=== PATIENT | female | born 1950 | race Caucasian/White ===

== ENCOUNTER 2020-03-02 22:42 | Inpatient (IN) ==
[2020-03-03] MEDS ORDERED: ONDANSETRON 4 MG/2 ML VIAL IV PRN (03:10)
[2020-03-03] MEDS ORDERED: ALBUTEROL 2.5 MG/3 ML NEB RESP TX PRN (03:10)
[2020-03-03] MEDS ORDERED: ENOXAPARIN 40 MG/0.4 ML SYRINGE SUBCUT SCH (03:30)
[2020-03-03 03:41] LABS: Allen Test Positive; Pt O2 Delivery Device Ventilator
[2020-03-03] MEDS ORDERED: GLUCAGON 1 MG VIAL IM PRN (03:41)
[2020-03-03] MEDS ORDERED: DEXTROSE 50% 25 GM/50 ML VIAL IV PRN (03:41)
[2020-03-03 03:42] LABS: ABG Base Excess -2.9 MMOL/L (-2.5-2.5); ABG HCO3 21.2 MMOL/L (20-26); ABG Oxygen Saturation 99.4 % (95-100); ABG PCO2 34.6 MM HG (35-48); ABG PH 7.405 (7.35-7.45); ABG PO2 473.4 MM HG (80-95); ABG TCO2 22.3 MMOL/L (23-27)
[2020-03-03] MEDS: ENOXAPARIN 40 MG/0.4 ML SYRINGE SUBCUT SCH ×2 (04:59→16:20)
[2020-03-03] MEDS: SODIUM CHLORIDE 0.9% 1,000 ML IV SCH ×3 (04:59→20:27)
[2020-03-03] MEDS: LEVOTHYROXINE 200 MCG TABLET PO SCH (05:43)
[2020-03-03] MEDS: INSULIN REGULAR 100 UNIT/ML SUBCUT SCH ×3 (06:01→17:52)
[2020-03-03] MEDS: ALBUTEROL/IPRATROPIUM 3 ML NEB RESP TX SCH ×3 (07:10→20:03)
[2020-03-03 07:50] LABS: Apearance,Urine CLOUDY (Clear); Bilirubin,Urine Negative (Negative); Blood, Urine Small mg/dL (Negative); Glucose,Urine (UA) Negative (Negative); Hyaline Casts,Urine 53 /LPF (0-3); Ketones,Urine Negative (Negative); Mucus,Urine Few /LPF (Occasional); Nitrite,Urine Negative (Negative); Protein,Urine 30 MG/DL; RBC,Urine 93 /HPF (0-4); Squamous Epithelial Cell,Urine Occasional /HPF (0-10); Urine Color Amber (Yellow); Urine Specific Gravity 1.025 (1.001-1.035); Urine Urobilinogen < 2.0 EU/DL (0.2-1.0); WBC,Urine 397 /HPF (0-6)
[2020-03-03] MEDS ORDERED: MIDAZOLAM 10 MG/2 ML VIAL ONE (10:51)
[2020-03-03] MEDS ORDERED: MIDAZOLAM 2 MG/2 ML VIAL IV ONE (10:53)
[2020-03-03 14:20] LABS: Basophils % 0.1 % (0.0-0.8); Eosinophils % 0.1 % (0.00-10.9); Hematocrit 31.8 VOL% (35.7-47.0); Hemoglobin 9.7 GM/DL (12.0-16.0); Immature Granulocytes % 0.5 %; Immature Granulocytes Absolute 0.08 #; Lymphocytes # 1.8 10*3/uL (1.4-4.0); Lymphocytes % 11.8 % (21.3-54.2); Mean Corpuscular HGB Conc 30.5 GM/DL (32-36); Mean Corpuscular Volume 98.1 FL (87-102); Mean Platelet Volume 10.1 FL (9.6-12.0); Monocytes % 5.8 % (1.7-12.7); Neutrophils % 81.7 % (38.7-73.9); Platelet Count 282 T/CUMM (130-400); Red Blood Count 3.24 MC/CUMM (3.8-5.5); Red Cell Distribution Width 15.9 % (9.3-17.3); White Blood Count 15.1 T/CUMM (4-12)
[2020-03-03] MEDS: FAMOTIDINE 20 MG TABLET PO SCH (14:35)
[2020-03-03] MEDS: ASPIRIN CHEW 81 MG TABLET PO SCH (14:35)
[2020-03-03 14:36] LABS: Calcium 8.9 MG/DL (8.5-10.1); Osmolality,Calculated 313.6 MOS/KG (273-304)
[2020-03-03] MEDS: levETIRAcetam LIQUID 100 MG/ML 30 ML/BOTTLE PO SCH ×2 (14:37→20:30)
[2020-03-03 14:44] LABS: Troponin I 22.4 NG/ML (0.00-0.045)
[2020-03-03 14:56] LABS: Band Neutrophils 16 % (0-10); Lymphocytes 7 % (20-55); Platelet Estimate Normal; Polychromasia Slight; Segmented Neutrophils 74 % (50-85); Total Cells Counted 100
[2020-03-03] MEDS ORDERED: DIGOXIN 0.5 MG/2 ML AMP IV ONE ×2 (14:56→16:00)
[2020-03-03 14:57] LABS: Burr Cells Slight; Poikilocytosis Slight
[2020-03-03] MEDS ORDERED: POTASSIUM CHLORIDE RIDER 10 MEQ in PREMIX 1 EACH IV PRN (17:41)
[2020-03-03] MEDS: POTASSIUM CHLORIDE RIDER 20 MEQ in PREMIX 1 EACH IV PRN ×2 (18:05→20:28)
[2020-03-03] MEDS ORDERED: SODIUM CHLORIDE 0.9% 500 ML IV ONE (19:50)
[2020-03-03] MEDS: LATANOPROST 0.005% OPH SOLN 2.5 ML BOTTLE BOTH EYES SCH (20:29)
[2020-03-04] MEDS: ALBUTEROL/IPRATROPIUM 3 ML NEB RESP TX SCH ×4 (00:29→19:24)
[2020-03-04] MEDS: INSULIN REGULAR 100 UNIT/ML SUBCUT SCH ×4 (01:17→17:34)
[2020-03-04] MEDS ORDERED: SODIUM CHLORIDE 0.9% 500 ML IV ONE (01:30)
[2020-03-04] MEDS: SODIUM CHLORIDE 0.9% 1,000 ML IV SCH (02:16)
[2020-03-04] MEDS: ENOXAPARIN 40 MG/0.4 ML SYRINGE SUBCUT SCH ×2 (03:34→16:18)
[2020-03-04 03:52] LABS: ABG Base Excess -6.5 MMOL/L (-2.5-2.5); ABG HCO3 17.4 MMOL/L (20-26); ABG Oxygen Saturation 98.6 % (95-100); ABG PCO2 28.8 MM HG (35-48); ABG PO2 162.3 MM HG (80-95); ABG TCO2 18.3 MMOL/L (23-27); Allen Test Positive; Pt O2 Delivery Device Ventilator
[2020-03-04 05:57] LABS: Basophils % 0.2 % (0.0-0.8); Hematocrit 28.3 VOL% (35.7-47.0); Hemoglobin 8.8 GM/DL (12.0-16.0); Immature Granulocytes % 1.3 %; Immature Granulocytes Absolute 0.16 #; Lymphocytes # 1.1 10*3/uL (1.4-4.0); Lymphocytes % 8.8 % (21.3-54.2); Mean Corpuscular HGB Conc 31.1 GM/DL (32-36); Mean Corpuscular Volume 97.9 FL (87-102); Mean Platelet Volume 10.8 FL (9.6-12.0); Monocytes % 5.4 % (1.7-12.7); NRBC # 0.03 10*3/uL; Neutrophils % 84.3 % (38.7-73.9); Platelet Count 247 T/CUMM (130-400); Red Blood Count 2.89 MC/CUMM (3.8-5.5); Red Cell Distribution Width 15.9 % (9.3-17.3); White Blood Count 12.8 T/CUMM (4-12)
[2020-03-04 06:17] LABS: Calcium 8.5 MG/DL (8.5-10.1); Osmolality,Calculated 316.4 MOS/KG (273-304)
[2020-03-04 06:23] LABS: Prealbumin 3.1 MG/DL (20-40)
[2020-03-04] MEDS: LEVOTHYROXINE 200 MCG TABLET PO SCH (06:25)
[2020-03-04 06:33] LABS: Band Neutrophils 5 % (0-10); Lymphocytes 11 % (20-55); Segmented Neutrophils 77 % (50-85); Total Cells Counted 100
[2020-03-04 06:34] LABS: Anisocytosis 1+
[2020-03-04 06:35] LABS: Platelet Estimate Normal
[2020-03-04] MEDS: DEXTROSE 5% NACL 0.45% 1,000 ML IV SCH ×2 (09:00→22:32)
[2020-03-04] MEDS: LEVOFLOXACIN INJ 500 MG in PREMIX 1 EACH IV SCH (09:01)
[2020-03-04] MEDS: ASPIRIN CHEW 81 MG TABLET PO SCH (09:02)
[2020-03-04] MEDS: FAMOTIDINE 20 MG TABLET PO SCH (09:02)
[2020-03-04] MEDS: cefTRIAXone 1,000 MG in SYRINGE 1 EACH IV SCH (09:02)
[2020-03-04] MEDS: levETIRAcetam LIQUID 100 MG/ML 30 ML/BOTTLE PO SCH ×2 (09:03→21:29)
[2020-03-04] MEDS: LATANOPROST 0.005% OPH SOLN 2.5 ML BOTTLE BOTH EYES SCH (20:50)
[2020-03-05] MEDS: ALBUTEROL/IPRATROPIUM 3 ML NEB RESP TX SCH ×4 (00:07→19:07)
[2020-03-05] MEDS: INSULIN REGULAR 100 UNIT/ML SUBCUT SCH ×4 (00:15→18:08)
[2020-03-05 03:21] LABS: ABG Base Excess -3.3 MMOL/L (-2.5-2.5); ABG HCO3 21.7 MMOL/L (20-26); ABG Oxygen Saturation 98.8 % (95-100); ABG PCO2 29.7 MM HG (35-48); ABG TCO2 18.8 MMOL/L (23-27); Allen Test Positive; Pt O2 Delivery Device Ventilator
[2020-03-05] MEDS: ENOXAPARIN 40 MG/0.4 ML SYRINGE SUBCUT SCH ×2 (04:29→16:02)
[2020-03-05 04:40] LABS: Basophils % 0.3 % (0.0-0.8); Eosinophils % 0.3 % (0.00-10.9); Hematocrit 24.1 VOL% (35.7-47.0); Hemoglobin 7.5 GM/DL (12.0-16.0); Immature Granulocytes % 2.3 %; Immature Granulocytes Absolute 0.26 #; Lymphocytes # 1.2 10*3/uL (1.4-4.0); Lymphocytes % 10.8 % (21.3-54.2); Mean Corpuscular HGB Conc 31.1 GM/DL (32-36); Mean Corpuscular Volume 97.6 FL (87-102); Mean Platelet Volume 10.8 FL (9.6-12.0); Monocytes % 5.5 % (1.7-12.7); NRBC # 0.04 10*3/uL; Neutrophils % 80.8 % (38.7-73.9); Platelet Count 189 T/CUMM (130-400); Red Blood Count 2.47 MC/CUMM (3.8-5.5); Red Cell Distribution Width 16.2 % (9.3-17.3); White Blood Count 11.3 T/CUMM (4-12)
[2020-03-05 04:54] LABS: Calcium 8.4 MG/DL (8.5-10.1); Osmolality,Calculated 299.4 MOS/KG (273-304)
[2020-03-05] MEDS: POTASSIUM CHLORIDE RIDER 20 MEQ in PREMIX 1 EACH IV PRN (05:45)
[2020-03-05] MEDS: LEVOTHYROXINE 200 MCG TABLET PO SCH (05:45)
[2020-03-05 07:24] LABS: Band Neutrophils 2 % (0-10); Lymphocytes 7 % (20-55); Segmented Neutrophils 86 % (50-85); Total Cells Counted 100
[2020-03-05 07:26] LABS: Hypochromasia 1+
[2020-03-05 07:27] LABS: Anisocytosis 1+; Platelet Estimate Adequate
[2020-03-05] MEDS: ASPIRIN CHEW 81 MG TABLET PO SCH (08:02)
[2020-03-05] MEDS: LEVOFLOXACIN INJ 500 MG in PREMIX 1 EACH IV SCH (08:02)
[2020-03-05] MEDS: FAMOTIDINE 20 MG TABLET PO SCH (08:02)
[2020-03-05] MEDS: levETIRAcetam LIQUID 100 MG/ML 30 ML/BOTTLE PO SCH ×2 (08:02→20:57)
[2020-03-05] MEDS: cefTRIAXone 1,000 MG in SYRINGE 1 EACH IV SCH (08:03)
[2020-03-05] MEDS ORDERED: SODIUM CHLORIDE 0.9% 1,000 ML IV PRN (09:54)
[2020-03-05] MEDS: DEXTROSE 5% NACL 0.45% 1,000 ML IV SCH (12:34)
[2020-03-05 13:31] LABS: Pt O2 Delivery Device BIPAP
[2020-03-05 13:33] LABS: ABG Base Excess -1.7 MMOL/L (-2.5-2.5); ABG HCO3 22.9 MMOL/L (20-26); ABG Oxygen Saturation 95.5 % (95-100); ABG PCO2 29.1 MM HG (35-48); ABG PH 7.469 (7.35-7.45); ABG PO2 71.9 MM HG (80-95); ABG TCO2 19.2 MMOL/L (23-27)
[2020-03-05] MEDS ORDERED: LORazepam 2 MG/1 ML VIAL ONE (16:46)
[2020-03-05] MEDS ORDERED: LORazepam 2 MG/1 ML VIAL IV ONE (16:51)
[2020-03-05 17:03] VITALS: BP 120/75
[2020-03-05] MEDS ORDERED: VECURONIUM 10 MG VIAL IV ONE ×2 (17:45)
[2020-03-05] MEDS ORDERED: ETOMIDATE 20 MG/10 ML VIAL IV ONE ×2 (17:45)
[2020-03-05 18:37] LABS: ABG Base Excess -4.9 MMOL/L (-2.5-2.5); ABG HCO3 20.4 MMOL/L (20-26); ABG Oxygen Saturation 99.3 % (95-100); ABG PCO2 44.6 MM HG (35-48); ABG PH 7.296 (7.35-7.45); ABG TCO2 19.1 MMOL/L (23-27)
[2020-03-05] MEDS: LATANOPROST 0.005% OPH SOLN 2.5 ML BOTTLE BOTH EYES SCH (20:57)
[2020-03-05] MEDS: DEXMEDETOMIDINE 200 MCG in SODIUM CHLORIDE 0.9% 48 ML IV PRN (23:00)
[2020-03-06] MEDS: ALBUTEROL/IPRATROPIUM 3 ML NEB RESP TX SCH ×4 (01:46→19:04)
[2020-03-06] MEDS: INSULIN REGULAR 100 UNIT/ML SUBCUT SCH ×4 (01:46→18:08)
[2020-03-06 04:17] LABS: Allen Test Positive; Pt O2 Delivery Device Ventilator
[2020-03-06 04:20] LABS: ABG Base Excess -2.8 MMOL/L (-2.5-2.5); ABG HCO3 19.7 MMOL/L (20-26); ABG PCO2 27.8 MM HG (35-48); ABG PH 7.468 (7.35-7.45); ABG PO2 185.1 MM HG (80-95); ABG TCO2 20.5 MMOL/L (23-27)
[2020-03-06] MEDS: ENOXAPARIN 40 MG/0.4 ML SYRINGE SUBCUT SCH ×2 (05:15→15:46)
[2020-03-06] MEDS ORDERED: SODIUM CHLORIDE 0.9% 500 ML IV ONE (05:35)
[2020-03-06] MEDS ORDERED: DOPamine 800 MG/250 ML PREMIX IV PRN (06:02)
[2020-03-06 06:03] LABS: Basophils # 0.1 10*3/uL (0.0-0.2); Basophils % 0.5 % (0.0-0.8); Eosinophils % 0.1 % (0.00-10.9); Hematocrit 33.2 VOL% (35.7-47.0); Hemoglobin 10.8 GM/DL (12.0-16.0); Immature Granulocytes % 3.4 %; Immature Granulocytes Absolute 0.42 #; Lymphocytes % 8.2 % (21.3-54.2); Mean Corpuscular HGB Conc 32.5 GM/DL (32-36); Mean Platelet Volume 11.2 FL (9.6-12.0); Monocytes % 4.7 % (1.7-12.7); NRBC # 0.04 10*3/uL; Neutrophils % 83.1 % (38.7-73.9); Platelet Count 159 T/CUMM (130-400); Red Blood Count 3.65 MC/CUMM (3.8-5.5); Red Cell Distribution Width 16.2 % (9.3-17.3); White Blood Count 12.3 T/CUMM (4-12)
[2020-03-06 06:25] LABS: Calcium 8.2 MG/DL (8.5-10.1); Osmolality,Calculated 285.1 MOS/KG (273-304)
[2020-03-06 06:34] LABS: Osmolality,Calculated 285.1 MOS/KG (273-304)
[2020-03-06] MEDS: LEVOTHYROXINE 200 MCG TABLET PO SCH (06:41)
[2020-03-06 06:51] LABS: Band Neutrophils 5 % (0-10); Lymphocytes 8 % (20-55); Promyelocytes 2 %; Segmented Neutrophils 83 % (50-85); Total Cells Counted 100
[2020-03-06 06:52] LABS: Anisocytosis 1+; Hypochromasia 1+; Microcytosis 1+
[2020-03-06 06:53] LABS: Platelet Estimate Adequate
[2020-03-06] MEDS: FAMOTIDINE 20 MG TABLET PO SCH (08:22)
[2020-03-06] MEDS: ASPIRIN CHEW 81 MG TABLET PO SCH (08:22)
[2020-03-06] MEDS: cefTRIAXone 1,000 MG in SYRINGE 1 EACH IV SCH (08:22)
[2020-03-06] MEDS: levETIRAcetam LIQUID 100 MG/ML 30 ML/BOTTLE PO SCH ×2 (08:23→21:02)
[2020-03-06] MEDS: DEXTROSE 5% NACL 0.45% 1,000 ML IV SCH (08:41)
[2020-03-06] MEDS: LEVOFLOXACIN INJ 500 MG in PREMIX 1 EACH IV SCH (08:41)
[2020-03-06] MEDS ORDERED: SODIUM CHLORIDE 0.9% 250 ML IV ONE (09:24)
[2020-03-06] MEDS: MAGNESIUM SULF RIDER 2 GM in PREMIX 1 EACH IV PRN (09:40)
[2020-03-06] MEDS: ACETAMINOPHEN 325 MG TABLET PO PRN (12:28)
[2020-03-06] MEDS: DEXMEDETOMIDINE 200 MCG in SODIUM CHLORIDE 0.9% 48 ML IV PRN ×2 (12:50→18:31)
[2020-03-06] MEDS: LORazepam 2 MG/1 ML VIAL IV PRN (15:46)
[2020-03-06] MEDS: LATANOPROST 0.005% OPH SOLN 2.5 ML BOTTLE BOTH EYES SCH (22:37)
[2020-03-07] MEDS: INSULIN REGULAR 100 UNIT/ML SUBCUT SCH ×4 (00:32→18:35)
[2020-03-07] MEDS: ALBUTEROL/IPRATROPIUM 3 ML NEB RESP TX SCH ×4 (01:20→19:20)
[2020-03-07] MEDS: DEXMEDETOMIDINE 200 MCG in SODIUM CHLORIDE 0.9% 48 ML IV PRN ×2 (01:36→09:03)
[2020-03-07] MEDS: ENOXAPARIN 40 MG/0.4 ML SYRINGE SUBCUT SCH ×2 (04:26→17:20)
[2020-03-07 04:47] LABS: Allen Test Positive; Pt O2 Delivery Device Ventilator
[2020-03-07 04:47] LABS: Basophils % 0.4 % (0.0-0.8); Eosinophils # 0.1 10*3/uL (0.0-0.87); Eosinophils % 1.4 % (0.00-10.9); Hemoglobin 11.5 GM/DL (12.0-16.0); Immature Granulocytes % 3.3 %; Immature Granulocytes Absolute 0.34 #; Lymphocytes # 0.7 10*3/uL (1.4-4.0); Lymphocytes % 6.4 % (21.3-54.2); Mean Corpuscular HGB Conc 31.9 GM/DL (32-36); Mean Corpuscular Volume 92.5 FL (87-102); Mean Platelet Volume 10.9 FL (9.6-12.0); Monocytes % 4.1 % (1.7-12.7); Neutrophils % 84.4 % (38.7-73.9); Platelet Count 162 T/CUMM (130-400); Red Blood Count 3.89 MC/CUMM (3.8-5.5); Red Cell Distribution Width 16.2 % (9.3-17.3); White Blood Count 10.2 T/CUMM (4-12)
[2020-03-07 04:49] LABS: ABG Base Excess 0.1 MMOL/L (-2.5-2.5); ABG HCO3 24.6 MMOL/L (20-26); ABG Oxygen Saturation 99.4 % (95-100); ABG PCO2 34.3 MM HG (35-48); ABG PH 7.446 (7.35-7.45); ABG TCO2 20.9 MMOL/L (23-27)
[2020-03-07 05:02] LABS: Calcium 7.8 MG/DL (8.5-10.1); Osmolality,Calculated 283.1 MOS/KG (273-304)
[2020-03-07 05:43] LABS: Band Neutrophils 4 % (0-10); Eosinophils 2 % (0-10); Hypochromasia 1+; Lymphocytes 3 % (20-55); Microcytosis 1+; Polychromasia Slight; Segmented Neutrophils 89 % (50-85); Total Cells Counted 100
[2020-03-07 05:47] LABS: HDL Cholesterol 20 MG/DL (40-60); Triglycerides 52 MG/DL (2-150); VLDL CHOLESTEROL 10.4 MG/DL
[2020-03-07] MEDS: DEXTROSE 5% NACL 0.45% 1,000 ML IV SCH (05:56)
[2020-03-07] MEDS: LEVOTHYROXINE 200 MCG TABLET PO SCH (05:56)
[2020-03-07] MEDS: FAMOTIDINE 20 MG TABLET PO SCH (09:05)
[2020-03-07] MEDS: ASPIRIN CHEW 81 MG TABLET PO SCH (09:05)
[2020-03-07] MEDS: LEVOFLOXACIN INJ 500 MG in PREMIX 1 EACH IV SCH (09:05)
[2020-03-07] MEDS: POTASSIUM CHLORIDE 20 MEQ/15 ML UDCUP PER TUBE PRN (09:05)
[2020-03-07] MEDS: levETIRAcetam LIQUID 100 MG/ML 30 ML/BOTTLE PO SCH (09:05)
[2020-03-07] MEDS: cefTRIAXone 1,000 MG in SYRINGE 1 EACH IV SCH (09:05)
[2020-03-07] MEDS: NOREPINEPHRINE 8 MG in SODIUM CHLORIDE 0.9% 242 ML IV PRN (10:47)
[2020-03-07] MEDS: LORazepam 2 MG/1 ML VIAL IV PRN ×2 (12:15→22:40)
[2020-03-07] MEDS: ACETAMINOPHEN 325 MG TABLET PO PRN (13:20)
[2020-03-07] MEDS: DEXMEDETOMIDINE 400 MCG in SODIUM CHLORIDE 0.9% 96 ML IV PRN ×2 (14:40→23:00)
[2020-03-07] MEDS: LATANOPROST 0.005% OPH SOLN 2.5 ML BOTTLE BOTH EYES SCH (21:46)
[2020-03-08] MEDS: levETIRAcetam LIQUID 100 MG/ML 30 ML/BOTTLE PO SCH ×3 (00:23→21:07)
[2020-03-08] MEDS: INSULIN REGULAR 100 UNIT/ML SUBCUT SCH ×4 (01:01→17:40)
[2020-03-08] MEDS: ALBUTEROL/IPRATROPIUM 3 ML NEB RESP TX SCH ×4 (02:00→20:00)
[2020-03-08 04:19] LABS: Basophils % 0.2 % (0.0-0.8); Eosinophils # 0.1 10*3/uL (0.0-0.87); Immature Granulocytes % 1.9 %; Immature Granulocytes Absolute 0.23 #; Lymphocytes % 7.9 % (21.3-54.2); Mean Corpuscular HGB Conc 32.4 GM/DL (32-36); Mean Corpuscular Volume 92.6 FL (87-102); Mean Platelet Volume 11.2 FL (9.6-12.0); Monocytes % 4.9 % (1.7-12.7); Neutrophils % 84.1 % (38.7-73.9); Platelet Count 167 T/CUMM (130-400); Red Blood Count 3.67 MC/CUMM (3.8-5.5); Red Cell Distribution Width 16.1 % (9.3-17.3); White Blood Count 12.1 T/CUMM (4-12)
[2020-03-08] MEDS: DEXTROSE 5% NACL 0.45% 1,000 ML IV SCH (04:30)
[2020-03-08] MEDS: ENOXAPARIN 40 MG/0.4 ML SYRINGE SUBCUT SCH ×2 (04:30→15:01)
[2020-03-08 04:31] LABS: ABG Base Excess 0.6 MMOL/L (-2.5-2.5); ABG HCO3 23.1 MMOL/L (20-26); ABG Oxygen Saturation 99.1 % (95-100); ABG PCO2 30.2 MM HG (35-48); ABG PH 7.502 (7.35-7.45); ABG PO2 207.1 MM HG (80-95); ABG TCO2 24.1 MMOL/L (23-27); Allen Test Positive; Pt O2 Delivery Device Ventilator
[2020-03-08 04:36] LABS: Calcium 7.9 MG/DL (8.5-10.1); Osmolality,Calculated 280.5 MOS/KG (273-304)
[2020-03-08 04:49] LABS: Band Neutrophils 1 % (0-10); Hypochromasia 1+; Lymphocytes 5 % (20-55); Platelet Estimate Adequate; Segmented Neutrophils 91 % (50-85); Total Cells Counted 100
[2020-03-08 04:50] LABS: Microcytosis 1+
[2020-03-08] MEDS: LEVOTHYROXINE 200 MCG TABLET PO SCH (06:18)
[2020-03-08] MEDS: MAGNESIUM SULF RIDER 2 GM in PREMIX 1 EACH IV PRN (06:25)
[2020-03-08] MEDS: ACETAMINOPHEN 325 MG TABLET PO PRN (08:40)
[2020-03-08] MEDS: ASPIRIN CHEW 81 MG TABLET PO SCH (08:41)
[2020-03-08] MEDS: FAMOTIDINE 20 MG TABLET PO SCH (08:41)
[2020-03-08] MEDS: LEVOFLOXACIN INJ 500 MG in PREMIX 1 EACH IV SCH (08:45)
[2020-03-08] MEDS: cefTRIAXone 1,000 MG in SYRINGE 1 EACH IV SCH (08:50)
[2020-03-08] MEDS ORDERED: methylPREDNISolone SOD SUC 125 MG/2 ML VIAL IV ONE (09:00)
[2020-03-08] MEDS: guaiFENesin 200 MG/10 ML UDCUP PER TUBE SCH ×4 (09:23→21:07)
[2020-03-08] MEDS: PIPERACILLIN/TAZOBACTAM 3,375 MG in SODIUM CHLORIDE 0.9% 100 ML IV SCH ×2 (10:28→17:41)
[2020-03-08] MEDS: DEXMEDETOMIDINE 400 MCG in SODIUM CHLORIDE 0.9% 96 ML IV PRN (11:20)
[2020-03-08] MEDS: NOREPINEPHRINE 8 MG in SODIUM CHLORIDE 0.9% 242 ML IV PRN (11:58)
[2020-03-08] MEDS ORDERED: FUROSEMIDE 20 MG/2 ML VIAL IV ONE (17:00)
[2020-03-08] MEDS: methylPREDNISolone SOD SUC 40 MG/1 ML VIAL IV SCH (17:40)
[2020-03-08] MEDS: LATANOPROST 0.005% OPH SOLN 2.5 ML BOTTLE BOTH EYES SCH (21:08)
[2020-03-08] MEDS: LORazepam 2 MG/1 ML VIAL IV PRN (22:45)
[2020-03-09] MEDS: INSULIN REGULAR 100 UNIT/ML SUBCUT SCH ×4 (00:03→17:41)
[2020-03-09] MEDS: DEXTROSE 5% NACL 0.45% 1,000 ML IV SCH ×2 (00:43→01:58)
[2020-03-09] MEDS: ALBUTEROL/IPRATROPIUM 3 ML NEB RESP TX SCH ×4 (00:49→19:51)
[2020-03-09] MEDS: PIPERACILLIN/TAZOBACTAM 3,375 MG in SODIUM CHLORIDE 0.9% 100 ML IV SCH ×3 (00:51→17:01)
[2020-03-09] MEDS: methylPREDNISolone SOD SUC 40 MG/1 ML VIAL IV SCH ×3 (00:51→16:58)
[2020-03-09] MEDS: DEXMEDETOMIDINE 400 MCG in SODIUM CHLORIDE 0.9% 96 ML IV PRN ×2 (01:02→22:46)
[2020-03-09] MEDS: ENOXAPARIN 40 MG/0.4 ML SYRINGE SUBCUT SCH ×2 (04:25→16:13)
[2020-03-09 05:21] LABS: Basophils % 0.3 % (0.0-0.8); Hematocrit 32.9 VOL% (35.7-47.0); Hemoglobin 10.8 GM/DL (12.0-16.0); Immature Granulocytes % 1.5 %; Lymphocytes # 0.7 10*3/uL (1.4-4.0); Lymphocytes % 9.7 % (21.3-54.2); Mean Corpuscular HGB Conc 32.8 GM/DL (32-36); Mean Corpuscular Volume 90.6 FL (87-102); Mean Platelet Volume 11.8 FL (9.6-12.0); Monocytes % 3.2 % (1.7-12.7); Neutrophils % 85.3 % (38.7-73.9); Platelet Count 152 T/CUMM (130-400); Red Blood Count 3.63 MC/CUMM (3.8-5.5); Red Cell Distribution Width 16.2 % (9.3-17.3); White Blood Count 6.8 T/CUMM (4-12)
[2020-03-09] MEDS: LEVOTHYROXINE 200 MCG TABLET PO SCH (05:36)
[2020-03-09 05:38] LABS: Calcium 7.5 MG/DL (8.5-10.1); Osmolality,Calculated 295.1 MOS/KG (273-304)
[2020-03-09 05:45] LABS: Hypochromasia 1+; Lymphocytes 4 % (20-55); Microcytosis 1+; Platelet Estimate Adequate; Segmented Neutrophils 94 % (50-85); Total Cells Counted 100
[2020-03-09] MEDS: ASPIRIN CHEW 81 MG TABLET PO SCH (08:50)
[2020-03-09] MEDS: FAMOTIDINE 20 MG TABLET PO SCH (08:50)
[2020-03-09] MEDS: guaiFENesin 200 MG/10 ML UDCUP PER TUBE SCH ×4 (08:51→21:07)
[2020-03-09] MEDS: POTASSIUM CHLORIDE 20 MEQ/15 ML UDCUP PER TUBE PRN ×3 (08:52→13:01)
[2020-03-09] MEDS: levETIRAcetam LIQUID 100 MG/ML 30 ML/BOTTLE PO SCH ×2 (08:58→21:08)
[2020-03-09] MEDS: LATANOPROST 0.005% OPH SOLN 2.5 ML BOTTLE BOTH EYES SCH (21:08)
[2020-03-10] MEDS: ALBUTEROL/IPRATROPIUM 3 ML NEB RESP TX SCH ×3 (00:25→13:43)
[2020-03-10] MEDS: INSULIN REGULAR 100 UNIT/ML SUBCUT SCH ×3 (00:27→12:32)
[2020-03-10] MEDS: PIPERACILLIN/TAZOBACTAM 3,375 MG in SODIUM CHLORIDE 0.9% 100 ML IV SCH ×2 (00:31→08:45)
[2020-03-10] MEDS: methylPREDNISolone SOD SUC 40 MG/1 ML VIAL IV SCH ×2 (00:32→08:20)
[2020-03-10] MEDS: DEXTROSE 5% NACL 0.45% 1,000 ML IV SCH (00:48)
[2020-03-10] MEDS: ENOXAPARIN 40 MG/0.4 ML SYRINGE SUBCUT SCH (04:15)
[2020-03-10 04:36] LABS: Basophils % 0.1 % (0.0-0.8); Hematocrit 31.9 VOL% (35.7-47.0); Hemoglobin 10.3 GM/DL (12.0-16.0); Immature Granulocytes Absolute 0.09 #; Lymphocytes # 0.6 10*3/uL (1.4-4.0); Lymphocytes % 6.8 % (21.3-54.2); Mean Corpuscular HGB Conc 32.3 GM/DL (32-36); Mean Corpuscular Volume 92.2 FL (87-102); Mean Platelet Volume 11.8 FL (9.6-12.0); Monocytes % 3.4 % (1.7-12.7); Neutrophils % 88.7 % (38.7-73.9); Platelet Count 157 T/CUMM (130-400); Red Blood Count 3.46 MC/CUMM (3.8-5.5); Red Cell Distribution Width 16.1 % (9.3-17.3); White Blood Count 9.2 T/CUMM (4-12)
[2020-03-10 04:37] LABS: ABG Base Excess 4.1 MMOL/L (-2.5-2.5); ABG HCO3 28.1 MMOL/L (20-26); ABG Oxygen Saturation 99.5 % (95-100); ABG PCO2 39.3 MM HG (35-48); ABG PH 7.462 (7.35-7.45); Allen Test Positive; Pt O2 Delivery Device Ventilator
[2020-03-10 04:54] LABS: Calcium 7.6 MG/DL (8.5-10.1); Osmolality,Calculated 290.5 MOS/KG (273-304)
[2020-03-10] MEDS: NOREPINEPHRINE 8 MG in SODIUM CHLORIDE 0.9% 242 ML IV PRN (05:12)
[2020-03-10] MEDS: LEVOTHYROXINE 200 MCG TABLET PO SCH (06:37)
[2020-03-10] MEDS: ASPIRIN CHEW 81 MG TABLET PO SCH (08:19)
[2020-03-10] MEDS: levETIRAcetam LIQUID 100 MG/ML 30 ML/BOTTLE PO SCH (08:20)
[2020-03-10] MEDS: FAMOTIDINE 20 MG TABLET PO SCH (08:20)
[2020-03-10] MEDS: guaiFENesin 200 MG/10 ML UDCUP PER TUBE SCH ×2 (08:21→14:17)
== END 2020-03-10 14:07 | DRG 207 ==
LOC: EDBD → N.ICU 03-03 02:50 → SUATTDRO 03-03 02:50
PROVIDERS: ADMIT Internal Medicine; ATTEND Family Medicine